=== PATIENT | female | born 1940 | race African-American/Black ===

== ENCOUNTER 2020-06-21 10:27 | Emergency (ER) | payer MEDICARE, MEDICAID ==
[~2020-06-21] VITALS: Ht 157.5 cm; Wt 66.0 kg
[2020-06-21] MEDS ORDERED: HYDROCODONE/ACETAMINOPHEN 5/325MG TABLET PO NR (12:45)
[2020-06-21 13:03] VITALS: BP 158/98
== END 2020-06-21 13:05 | disposition home or self-care (01) ==
LOC: ER 10:27
DX: M25.511 Pain in right shoulder (principal); M25.512 Pain in left shoulder; W18.39XA Other fall on same level, initial encounter; Y93.89 Activity, other specified; Y92.89 Other specified places as the place of occurrence of the external cause; Y99.8 Other external cause status; E11.9 Type 2 diabetes mellitus without complications; I10 Essential (primary) hypertension
CPT/HCPCS: 71250; 73030; 93005; 99285

== ENCOUNTER 2020-12-27 19:54 | Emergency (ER) | payer MEDICARE, MEDICAID ==
[~2020-12-27] VITALS: Ht 157.5 cm; Wt 69.0 kg
[2020-12-27] MEDS ORDERED: SODIUM CHLORIDE 0.9% 1,000 ML IV ONE (23:00)
[2020-12-27] MEDS ORDERED: ENALAPRIL 2.5MG/2ML VIAL 2ML IV ONE (23:30)
[2020-12-27 23:46] LABS: HEMATOCRIT. 35.8 % (36.0-48.0); HEMOGLOBIN. 12.4 g/dL (12.0-16.0); MEAN CORPUSCULAR HEMOGLOBIN 30.6 pg (28.0-32.0); MEAN CORPUSCULAR VOLUME 88.8 fL (81.0-99.0); MEAN PLATELET VOLUME 8.2 fl (7.4-10.4); PLATELET 212 x1000/uL (130-400); RED BLOOD CELL COUNT 4.04 mill/uL (4.2-5.4); RED CELL DISTRIBUTION WIDTH 15.4 % (11.6-14.6)
[2020-12-28 00:14] LABS: CHLORIDE 103 mEq/L (98-107)
[2020-12-28 02:01] VITALS: BP 144/89
[2020-12-28 09:10] LABS: PLATELET ESTIMATE NORMAL
[2021-01-06] MEDS ORDERED: TC1C15 TP (23:15)
[2021-01-06] MEDS ORDERED: BENA20TA10 PO (23:15)
[2021-01-06] MEDS ORDERED: GLIP10TA10 PO (23:15)
[2021-01-06] MEDS ORDERED: ATOR-2 PO (23:15)
[2021-01-06] MEDS ORDERED: BRIM10DR2 RIGHTEYE (23:15)
[2021-01-06] MEDS ORDERED: LOSA100T32 PO (23:15)
[2021-01-06] MEDS ORDERED: GABA-529 PO (23:15)
[2021-01-06] MEDS ORDERED: ATEN100T PO (23:15)
[2021-01-06] MEDS ORDERED: BROM3DRO EACHEYE (23:15)
[2021-01-06] MEDS ORDERED: ACET325T52 PO (23:15)
[2021-01-06] MEDS ORDERED: BESI5DRO EACHEYE (23:15)
[2021-01-06] MEDS ORDERED: AMLO10TA80 PO (23:15)
[2021-01-07] MEDS ORDERED: NETA2.5D3 OP (21:55)
== END 2020-12-28 02:14 | disposition home or self-care (01) ==
LOC: ER 19:54
DX: T88.1XXA Other complications following immunization, not elsewhere classified, initial encounter (principal); I10 Essential (primary) hypertension; J45.909 Unspecified asthma, uncomplicated; E11.9 Type 2 diabetes mellitus without complications; T50.B95A Adverse effect of other viral vaccines, initial encounter; Y84.8 Other medical procedures as the cause of abnormal reaction of the patient, or of later complication, without mention of misadventure at the time of the procedure; Y92.018 Other place in single-family (private) house as the place of occurrence of the external cause
CPT/HCPCS: 36415; 71045; 80053; 85025; 96361; 96374; 99284; J3490; J7030

== ENCOUNTER 2021-01-09 14:50 | Inpatient (IN) | payer MEDICARE, MEDICAID ==
[~2021-01-09] VITALS: Ht 154.9 cm; Wt 59.9 kg
[~2021-01-09 14:50] MED LIST: ACET325T52 PO; AMLO10TA80 PO; ATEN100T PO; ATOR-2 PO; BENA20TA10 PO; BESI5DRO EACHEYE; BRIM10DR2 RIGHTEYE; BROM3DRO EACHEYE; GABA-529 PO; GLIP10TA10 PO; LOSA100T32 PO; NETA2.5D3 OP; TC1C15 TP
[2021-01-09 15:00] VITALS: BP 143/75
[2021-01-09] MEDS: BLOOD SUGAR DIAGNOSTIC STRIP TEST SCH ×2 (17:00→21:14)
[2021-01-09] MEDS ORDERED: DIPHENHYDRAMINE 25MG CAPSULE PO PRN (17:15)
[2021-01-09] MEDS ORDERED: IPRATROPIUM/ALBUTEROL 0.5-3(2.5)MG/3ML NEB HHN PRN (17:15)
[2021-01-09] MEDS ORDERED: DEXTROSE 50% WATER 50ML SYRINGE IV PRN (17:15)
[2021-01-09] MEDS ORDERED: NALOXONE HCL 0.4MG/ML VIAL IV PRN (17:15)
[2021-01-09] MEDS ORDERED: GUAIFENESIN 200MG/10ML SUGAR FREE UDC PO PRN (17:45)
[2021-01-09] MEDS ORDERED: ONDANSETRON HCL 4MG/2ML INJ IV PRN (17:45)
[2021-01-09] MEDS ORDERED: MAGNESIUM/ALUMINUM HYDROXIDE/SIMETHICONE 30ML UDC PO PRN (17:45)
[2021-01-09] MEDS ORDERED: CLONIDINE 0.1MG TABLET PO PRN (17:45)
[2021-01-09] MEDS: INSULIN LISPRO 100 UNITS/ML SUBCUT SCH ×2 (18:21→21:29)
[2021-01-09] MEDS ORDERED: NETA2.5D3 EACHEYE (18:34)
[2021-01-09 20:00] VITALS: BP 157/90
[2021-01-09] MEDS: TIMOLOL MALEATE 0.5% OPHTH DROPS 5ML EACHEYE SCH (20:27)
[2021-01-09] MEDS: ATORVASTATIN CALCIUM 40MG TABLET PO SCH (20:28)
[2021-01-09] MEDS: OPTH OP SCH (20:28)
[2021-01-09] MEDS: BESIFLOXACIN OP SCH (20:28)
[2021-01-09] MEDS: METOPROLOL TARTRATE 25MG TABLET PO SCH (20:28)
[2021-01-09] MEDS: ROCKLATAN OP SCH (20:28)
[2021-01-09] MEDS ORDERED: LATANOPROST 0.005% OPHTH DROPS 2.5ML BOTHEYE SCH (21:00)
[2021-01-09] MEDS ORDERED: BLOOD SUGAR DIAGNOSTIC STRIP TEST SCH (21:00)
[2021-01-09] MEDS: GABAPENTIN 100MG CAPSULE PO SCH (21:11)
[2021-01-10] MEDS: GABAPENTIN 100MG CAPSULE PO SCH ×3 (05:53→22:34)
[2021-01-10] MEDS: BLOOD SUGAR DIAGNOSTIC STRIP TEST SCH ×4 (06:00→22:10)
[2021-01-10 08:00] VITALS: BP 144/75
[2021-01-10] MEDS: METOPROLOL TARTRATE 25MG TABLET PO SCH ×2 (08:33→21:36)
[2021-01-10] MEDS: ASPIRIN 81MG TABLET PO SCH (08:33)
[2021-01-10] MEDS: POLYETHYLENE GLYCOL 3350 (17GM) 1 DOSE PACK PO SCH (08:33)
[2021-01-10] MEDS: AMLODIPINE 10MG TABLET PO SCH (08:34)
[2021-01-10] MEDS: BESIFLOXACIN OP SCH ×4 (08:35→21:35)
[2021-01-10] MEDS: TIMOLOL MALEATE 0.5% OPHTH DROPS 5ML EACHEYE SCH ×2 (08:35→21:34)
[2021-01-10] MEDS: PROLENSA 0.07% OP SCH (08:35)
[2021-01-10] MEDS: BRIMONIDINE 0.2% OPHTH DROPS 5ML BOTHEYE SCH ×2 (08:36→18:00)
[2021-01-10] MEDS: DOCUSATE SODIUM 100MG CAPSULE PO SCH (08:41)
[2021-01-10] MEDS: ENOXAPARIN 30MG/0.3ML SYR SUBCUT SCH (08:58)
[2021-01-10] MEDS: INSULIN LISPRO 100 UNITS/ML SUBCUT SCH ×4 (08:58→22:10)
[2021-01-10] MEDS ORDERED: NA PHOS,M-B/NA PHOS,DI-BA ENEMA 118ML PR PRN (11:15)
[2021-01-10] MEDS ORDERED: SENNOSIDES/DOCUSATE SOD 8.6/50MG TABLET PO PRN (11:15)
[2021-01-10] MEDS ORDERED: LACTULOSE 20G/30ML UDC PO PRN (11:15)
[2021-01-10] MEDS ORDERED: BISACODYL 10MG SUPP PR PRN (11:15)
[2021-01-10] MEDS: ACETAMINOPHEN 325MG TABLET PO PRN ×2 (13:43→22:34)
[2021-01-10 20:00] VITALS: BP 141/69
[2021-01-10] MEDS: ROCKLATAN OP SCH (21:00)
[2021-01-10] MEDS: OPTH OP SCH (21:00)
[2021-01-10] MEDS: ATORVASTATIN CALCIUM 40MG TABLET PO SCH (21:37)
[2021-01-11] MEDS: GABAPENTIN 100MG CAPSULE PO SCH ×3 (05:59→21:52)
[2021-01-11] MEDS: BLOOD SUGAR DIAGNOSTIC STRIP TEST SCH ×4 (06:00→21:14)
[2021-01-11 07:47] VITALS: BP 122/82
[2021-01-11] MEDS: POLYETHYLENE GLYCOL 3350 (17GM) 1 DOSE PACK PO SCH (08:23)
[2021-01-11] MEDS: ASPIRIN 81MG TABLET PO SCH (08:24)
[2021-01-11] MEDS: AMLODIPINE 10MG TABLET PO SCH (08:24)
[2021-01-11] MEDS: METOPROLOL TARTRATE 25MG TABLET PO SCH ×2 (08:24→20:58)
[2021-01-11] MEDS: ENOXAPARIN 30MG/0.3ML SYR SUBCUT SCH (08:24)
[2021-01-11] MEDS: BISACODYL 5MG TABLET PO PRN (08:24)
[2021-01-11] MEDS: DOCUSATE SODIUM 100MG CAPSULE PO SCH (08:24)
[2021-01-11] MEDS: PROLENSA 0.07% OP SCH (08:25)
[2021-01-11] MEDS: TIMOLOL MALEATE 0.5% OPHTH DROPS 5ML EACHEYE SCH ×2 (08:25→20:58)
[2021-01-11] MEDS: BESIFLOXACIN OP SCH ×4 (08:25→20:58)
[2021-01-11] MEDS: BRIMONIDINE 0.2% OPHTH DROPS 5ML BOTHEYE SCH ×2 (08:25→17:13)
[2021-01-11] MEDS: HYDROCODONE/ACETAMINOPHEN 5/325MG TABLET PO PRN (08:46)
[2021-01-11] MEDS: INSULIN LISPRO 100 UNITS/ML SUBCUT SCH ×4 (08:50→21:31)
[2021-01-11 20:00] VITALS: BP 132/61
[2021-01-11] MEDS: ATORVASTATIN CALCIUM 40MG TABLET PO SCH (20:57)
[2021-01-11] MEDS: OPTH OP SCH (20:58)
[2021-01-11] MEDS: ROCKLATAN OP SCH (20:58)
[2021-01-12] MEDS: GABAPENTIN 100MG CAPSULE PO SCH ×3 (05:26→20:19)
[2021-01-12] MEDS: BLOOD SUGAR DIAGNOSTIC STRIP TEST SCH ×4 (06:09→21:33)
[2021-01-12] MEDS: INSULIN LISPRO 100 UNITS/ML SUBCUT SCH ×4 (06:43→20:47)
[2021-01-12 08:10] VITALS: BP 108/65
[2021-01-12] MEDS: ASPIRIN 81MG TABLET PO SCH (08:18)
[2021-01-12] MEDS: METFORMIN HCL 500MG TABLET PO SCH (08:18)
[2021-01-12] MEDS: DOCUSATE SODIUM 100MG CAPSULE PO SCH (08:18)
[2021-01-12] MEDS: PROLENSA 0.07% OP SCH (08:19)
[2021-01-12] MEDS: ENOXAPARIN 30MG/0.3ML SYR SUBCUT SCH (08:19)
[2021-01-12] MEDS: POLYETHYLENE GLYCOL 3350 (17GM) 1 DOSE PACK PO SCH (08:19)
[2021-01-12] MEDS: TIMOLOL MALEATE 0.5% OPHTH DROPS 5ML EACHEYE SCH ×2 (08:20→20:18)
[2021-01-12] MEDS: BRIMONIDINE 0.2% OPHTH DROPS 5ML BOTHEYE SCH ×2 (08:20→17:14)
[2021-01-12] MEDS: METOPROLOL TARTRATE 25MG TABLET PO SCH ×2 (08:21→20:20)
[2021-01-12] MEDS: AMLODIPINE 10MG TABLET PO SCH (08:21)
[2021-01-12] MEDS: BESIFLOXACIN OP SCH ×4 (08:21→20:18)
[2021-01-12] MEDS: HYDROCODONE/ACETAMINOPHEN 5/325MG TABLET PO PRN (10:05)
[2021-01-12 10:10] VITALS: BP 127/76
[2021-01-12] MEDS: OPTH OP SCH (20:17)
[2021-01-12] MEDS: ROCKLATAN OP SCH (20:17)
[2021-01-12] MEDS: ATORVASTATIN CALCIUM 40MG TABLET PO SCH (20:18)
[2021-01-12 21:39] VITALS: BP 125/78
[2021-01-13] MEDS: BLOOD SUGAR DIAGNOSTIC STRIP TEST SCH ×4 (05:51→20:44)
[2021-01-13] MEDS: GABAPENTIN 100MG CAPSULE PO SCH ×3 (05:51→21:50)
[2021-01-13] MEDS: INSULIN LISPRO 100 UNITS/ML SUBCUT SCH ×4 (07:35→22:11)
[2021-01-13 07:52] VITALS: BP 124/79
[2021-01-13] MEDS: ASPIRIN 81MG TABLET PO SCH (08:25)
[2021-01-13] MEDS: METFORMIN HCL 500MG TABLET PO SCH (08:25)
[2021-01-13] MEDS: HYDROCODONE/ACETAMINOPHEN 5/325MG TABLET PO PRN (08:26)
[2021-01-13] MEDS: METOPROLOL TARTRATE 25MG TABLET PO SCH ×2 (08:26→21:53)
[2021-01-13] MEDS: AMLODIPINE 10MG TABLET PO SCH (08:26)
[2021-01-13] MEDS: DOCUSATE SODIUM 100MG CAPSULE PO SCH (08:26)
[2021-01-13] MEDS: BESIFLOXACIN OP SCH ×4 (08:27→21:49)
[2021-01-13] MEDS: POLYETHYLENE GLYCOL 3350 (17GM) 1 DOSE PACK PO SCH (08:27)
[2021-01-13] MEDS: TIMOLOL MALEATE 0.5% OPHTH DROPS 5ML EACHEYE SCH ×2 (08:27→21:49)
[2021-01-13] MEDS: ENOXAPARIN 30MG/0.3ML SYR SUBCUT SCH (08:27)
[2021-01-13] MEDS: BRIMONIDINE 0.2% OPHTH DROPS 5ML BOTHEYE SCH ×2 (08:28→17:21)
[2021-01-13] MEDS: PROLENSA 0.07% OP SCH (08:28)
[2021-01-13 20:00] VITALS: BP 123/88
[2021-01-13] MEDS: ROCKLATAN OP SCH (21:49)
[2021-01-13] MEDS: OPTH OP SCH (21:49)
[2021-01-13] MEDS: ATORVASTATIN CALCIUM 40MG TABLET PO SCH (21:50)
[2021-01-13] MEDS: MEMANTINE HCL 5MG TABLET PO SCH (21:50)
[2021-01-14] MEDS: ACETAMINOPHEN 325MG TABLET PO PRN (05:35)
[2021-01-14] MEDS: GABAPENTIN 100MG CAPSULE PO SCH ×3 (05:35→20:06)
[2021-01-14] MEDS: BLOOD SUGAR DIAGNOSTIC STRIP TEST SCH ×4 (05:35→20:21)
[2021-01-14] MEDS: INSULIN LISPRO 100 UNITS/ML SUBCUT SCH ×4 (06:02→20:18)
[2021-01-14 07:43] VITALS: BP 129/65
[2021-01-14 07:57] LABS: BASOPHILS % 0.7 % (0.0-2.0); EOSINOPHILS % 1.8 % (0.0-5.0); HEMATOCRIT. 33.2 % (36.0-48.0); HEMOGLOBIN. 11.2 g/dL (12.0-16.0); LYMPHOCYTES % 26.7 % (20.0-50.0); MEAN CORPUSCULAR HEMOGLOBIN 29.9 pg (28.0-32.0); MEAN CORPUSCULAR VOLUME 88.2 fL (81.0-99.0); MONOCYTES % 11.2 % (2.0-8.0); NEUTROPHILS % 59.6 % (40.0-76.0); PLATELET 224 x1000/uL (130-400); RED BLOOD CELL COUNT 3.76 mill/uL (4.2-5.4)
[2021-01-14 08:03] LABS: CHLORIDE 98 mEq/L (98-107)
[2021-01-14] MEDS: METFORMIN HCL 500MG TABLET PO SCH (09:16)
[2021-01-14] MEDS: MEMANTINE HCL 5MG TABLET PO SCH ×2 (09:16→20:06)
[2021-01-14] MEDS: AMLODIPINE 10MG TABLET PO SCH (09:16)
[2021-01-14] MEDS: METOPROLOL TARTRATE 25MG TABLET PO SCH ×2 (09:16→20:07)
[2021-01-14] MEDS: ASPIRIN 81MG TABLET PO SCH (09:16)
[2021-01-14] MEDS: DOCUSATE SODIUM 100MG CAPSULE PO SCH (09:16)
[2021-01-14] MEDS: ENOXAPARIN 30MG/0.3ML SYR SUBCUT SCH (09:16)
[2021-01-14] MEDS: BRIMONIDINE 0.2% OPHTH DROPS 5ML BOTHEYE SCH ×2 (09:17→17:00)
[2021-01-14] MEDS: PROLENSA 0.07% OP SCH (09:18)
[2021-01-14] MEDS: TIMOLOL MALEATE 0.5% OPHTH DROPS 5ML EACHEYE SCH ×2 (09:18→20:06)
[2021-01-14] MEDS: BESIFLOXACIN OP SCH ×4 (09:19→20:06)
[2021-01-14] MEDS: POLYETHYLENE GLYCOL 3350 (17GM) 1 DOSE PACK PO SCH (09:20)
[2021-01-14] MEDS ORDERED: INSULIN GLARGINE UD 100 UNITS/ML SYR SUBCUT SCH (11:00)
[2021-01-14] MEDS: LINAGLIPTIN 5MG TABLET PO SCH (11:35)
[2021-01-14 20:00] VITALS: BP 165/78
[2021-01-14] MEDS: ATORVASTATIN CALCIUM 40MG TABLET PO SCH (20:06)
[2021-01-14] MEDS: ROCKLATAN OP SCH (20:06)
[2021-01-14] MEDS: OPTH OP SCH (20:06)
[2021-01-14 22:00] VITALS: BP 156/61
[2021-01-15] MEDS: GABAPENTIN 100MG CAPSULE PO SCH ×3 (05:29→21:20)
[2021-01-15] MEDS: BLOOD SUGAR DIAGNOSTIC STRIP TEST SCH ×4 (05:43→21:08)
[2021-01-15] MEDS: INSULIN LISPRO 100 UNITS/ML SUBCUT SCH ×7 (06:41→21:22)
[2021-01-15 07:48] VITALS: BP 132/75
[2021-01-15] MEDS: PROLENSA 0.07% OP SCH (09:53)
[2021-01-15] MEDS: BRIMONIDINE 0.2% OPHTH DROPS 5ML BOTHEYE SCH ×2 (09:53→18:06)
[2021-01-15] MEDS: BESIFLOXACIN OP SCH ×4 (09:53→20:50)
[2021-01-15] MEDS: TIMOLOL MALEATE 0.5% OPHTH DROPS 5ML EACHEYE SCH ×2 (09:53→20:51)
[2021-01-15] MEDS: MEMANTINE HCL 5MG TABLET PO SCH ×2 (09:54→20:51)
[2021-01-15] MEDS: DOCUSATE SODIUM 100MG CAPSULE PO SCH (09:54)
[2021-01-15] MEDS: METOPROLOL TARTRATE 25MG TABLET PO SCH ×3 (09:54→18:06)
[2021-01-15] MEDS: METFORMIN HCL 500MG TABLET PO SCH (09:54)
[2021-01-15] MEDS: AMLODIPINE 10MG TABLET PO SCH (09:54)
[2021-01-15] MEDS: POLYETHYLENE GLYCOL 3350 (17GM) 1 DOSE PACK PO SCH (09:55)
[2021-01-15] MEDS: ASPIRIN 81MG TABLET PO SCH (09:55)
[2021-01-15] MEDS: LINAGLIPTIN 5MG TABLET PO SCH (09:55)
[2021-01-15] MEDS: ENOXAPARIN 40MG/0.4ML SYR SUBCUT SCH (09:55)
[2021-01-15] MEDS: INSULIN GLARGINE UD 100 UNITS/ML SYR SUBCUT SCH (10:01)
[2021-01-15 17:30] VITALS: BP 136/72
[2021-01-15 20:00] VITALS: BP 133/93
[2021-01-15] MEDS: ROCKLATAN OP SCH (20:50)
[2021-01-15] MEDS: OPTH OP SCH (20:50)
[2021-01-15] MEDS: ATORVASTATIN CALCIUM 40MG TABLET PO SCH (20:51)
[2021-01-16] MEDS: GABAPENTIN 100MG CAPSULE PO SCH ×3 (05:28→21:16)
[2021-01-16] MEDS: BLOOD SUGAR DIAGNOSTIC STRIP TEST SCH ×4 (06:11→21:16)
[2021-01-16] MEDS: INSULIN LISPRO 100 UNITS/ML SUBCUT SCH ×7 (06:11→21:00)
[2021-01-16 08:00] VITALS: BP 137/53
[2021-01-16 08:33] LABS: CHLORIDE 102 mEq/L (98-107)
[2021-01-16 08:48] LABS: BASOPHILS % 0.5 % (0.0-2.0); EOSINOPHILS % 2.1 % (0.0-5.0); HEMATOCRIT. 44.4 % (36.0-48.0); HEMOGLOBIN. 14.4 g/dL (12.0-16.0); LYMPHOCYTES % 35.1 % (20.0-50.0); MEAN CORPUSCULAR HEMOGLOBIN 29.5 pg (28.0-32.0); MEAN PLATELET VOLUME 8.2 fl (7.4-10.4); MONOCYTES % 13.1 % (2.0-8.0); NEUTROPHILS % 49.2 % (40.0-76.0); PLATELET 203 x1000/uL (130-400); RED BLOOD CELL COUNT 4.89 mill/uL (4.2-5.4); RED CELL DISTRIBUTION WIDTH 15.2 % (11.6-14.6)
[2021-01-16] MEDS: ENOXAPARIN 40MG/0.4ML SYR SUBCUT SCH (09:24)
[2021-01-16] MEDS: PROLENSA 0.07% OP SCH (09:24)
[2021-01-16] MEDS: LINAGLIPTIN 5MG TABLET PO SCH (09:24)
[2021-01-16] MEDS: DOCUSATE SODIUM 100MG CAPSULE PO SCH (09:24)
[2021-01-16] MEDS: METFORMIN HCL 500MG TABLET PO SCH (09:24)
[2021-01-16] MEDS: POLYETHYLENE GLYCOL 3350 (17GM) 1 DOSE PACK PO SCH (09:24)
[2021-01-16] MEDS: ASPIRIN 81MG TABLET PO SCH (09:24)
[2021-01-16] MEDS: BESIFLOXACIN OP SCH ×4 (09:24→21:15)
[2021-01-16] MEDS: TIMOLOL MALEATE 0.5% OPHTH DROPS 5ML EACHEYE SCH ×2 (09:24→21:15)
[2021-01-16] MEDS: MEMANTINE HCL 5MG TABLET PO SCH ×2 (09:24→21:16)
[2021-01-16] MEDS: METOPROLOL TARTRATE 25MG TABLET PO SCH ×3 (09:25→18:04)
[2021-01-16] MEDS: BRIMONIDINE 0.2% OPHTH DROPS 5ML BOTHEYE SCH ×2 (09:26→17:00)
[2021-01-16] MEDS: AMLODIPINE 10MG TABLET PO SCH (11:04)
[2021-01-16] MEDS: INSULIN GLARGINE UD 100 UNITS/ML SYR SUBCUT SCH (11:07)
[2021-01-16 20:00] VITALS: BP 145/70
[2021-01-16] MEDS: ROCKLATAN OP SCH (21:15)
[2021-01-16] MEDS: OPTH OP SCH (21:15)
[2021-01-16] MEDS: ATORVASTATIN CALCIUM 40MG TABLET PO SCH (21:16)
[2021-01-17] MEDS: GABAPENTIN 100MG CAPSULE PO SCH ×3 (05:56→21:41)
[2021-01-17] MEDS: BLOOD SUGAR DIAGNOSTIC STRIP TEST SCH ×4 (05:59→21:42)
[2021-01-17] MEDS: INSULIN LISPRO 100 UNITS/ML SUBCUT SCH ×7 (06:01→21:00)
[2021-01-17 08:18] VITALS: BP 135/76
[2021-01-17] MEDS: LINAGLIPTIN 5MG TABLET PO SCH (08:45)
[2021-01-17] MEDS: BISACODYL 5MG TABLET PO PRN (08:45)
[2021-01-17] MEDS: DOCUSATE SODIUM 100MG CAPSULE PO SCH (08:45)
[2021-01-17] MEDS: METOPROLOL TARTRATE 25MG TABLET PO SCH ×3 (08:45→16:26)
[2021-01-17] MEDS: MEMANTINE HCL 5MG TABLET PO SCH ×2 (08:45→21:41)
[2021-01-17] MEDS: METFORMIN HCL 500MG TABLET PO SCH (08:45)
[2021-01-17] MEDS: ASPIRIN 81MG TABLET PO SCH (08:45)
[2021-01-17] MEDS: ENOXAPARIN 40MG/0.4ML SYR SUBCUT SCH (08:46)
[2021-01-17] MEDS: AMLODIPINE 10MG TABLET PO SCH (08:46)
[2021-01-17] MEDS: POLYETHYLENE GLYCOL 3350 (17GM) 1 DOSE PACK PO SCH (08:46)
[2021-01-17] MEDS: BRIMONIDINE 0.2% OPHTH DROPS 5ML BOTHEYE SCH ×2 (08:46→16:27)
[2021-01-17] MEDS: TIMOLOL MALEATE 0.5% OPHTH DROPS 5ML EACHEYE SCH ×2 (08:47→21:41)
[2021-01-17] MEDS: BESIFLOXACIN OP SCH ×4 (08:47→21:41)
[2021-01-17] MEDS: PROLENSA 0.07% OP SCH (08:48)
[2021-01-17] MEDS: INSULIN GLARGINE UD 100 UNITS/ML SYR SUBCUT SCH (09:52)
[2021-01-17 12:37] VITALS: BP 122/76
[2021-01-17 16:20] VITALS: BP 125/74
[2021-01-17 20:00] VITALS: BP 100/50
[2021-01-17] MEDS: ATORVASTATIN CALCIUM 40MG TABLET PO SCH (21:41)
[2021-01-17] MEDS: OPTH OP SCH (21:41)
[2021-01-17] MEDS: ROCKLATAN OP SCH (21:41)
[2021-01-18] MEDS: GABAPENTIN 100MG CAPSULE PO SCH ×3 (05:15→21:15)
[2021-01-18] MEDS: BLOOD SUGAR DIAGNOSTIC STRIP TEST SCH ×4 (06:43→21:18)
[2021-01-18] MEDS: INSULIN LISPRO 100 UNITS/ML SUBCUT SCH ×7 (06:44→21:23)
[2021-01-18 07:46] VITALS: BP 155/82
[2021-01-18] MEDS: METOPROLOL TARTRATE 25MG TABLET PO SCH ×3 (08:09→17:09)
[2021-01-18] MEDS: TIMOLOL MALEATE 0.5% OPHTH DROPS 5ML EACHEYE SCH ×2 (08:09→21:14)
[2021-01-18] MEDS: BRIMONIDINE 0.2% OPHTH DROPS 5ML BOTHEYE SCH ×2 (08:09→17:09)
[2021-01-18] MEDS: PROLENSA 0.07% OP SCH (08:09)
[2021-01-18] MEDS: BESIFLOXACIN OP SCH ×4 (08:09→21:14)
[2021-01-18] MEDS: POLYETHYLENE GLYCOL 3350 (17GM) 1 DOSE PACK PO SCH (08:09)
[2021-01-18] MEDS: METFORMIN HCL 500MG TABLET PO SCH (08:09)
[2021-01-18] MEDS: AMLODIPINE 10MG TABLET PO SCH (08:10)
[2021-01-18] MEDS: ENOXAPARIN 40MG/0.4ML SYR SUBCUT SCH (08:10)
[2021-01-18] MEDS: DOCUSATE SODIUM 100MG CAPSULE PO SCH (08:10)
[2021-01-18] MEDS: MEMANTINE HCL 5MG TABLET PO SCH ×2 (08:10→21:14)
[2021-01-18] MEDS: LINAGLIPTIN 5MG TABLET PO SCH (08:10)
[2021-01-18] MEDS: ASPIRIN 81MG TABLET PO SCH (08:10)
[2021-01-18] MEDS: INSULIN GLARGINE UD 100 UNITS/ML SYR SUBCUT SCH (10:27)
[2021-01-18 20:00] VITALS: BP 119/50
[2021-01-18] MEDS: ROCKLATAN OP SCH (21:14)
[2021-01-18] MEDS: OPTH OP SCH (21:14)
[2021-01-18] MEDS: ATORVASTATIN CALCIUM 40MG TABLET PO SCH (21:15)
[2021-01-19] MEDS: GABAPENTIN 100MG CAPSULE PO SCH ×3 (06:42→21:20)
[2021-01-19] MEDS: BLOOD SUGAR DIAGNOSTIC STRIP TEST SCH ×4 (06:43→21:21)
[2021-01-19] MEDS: INSULIN LISPRO 100 UNITS/ML SUBCUT SCH ×5 (06:44→21:00)
[2021-01-19 08:17] VITALS: BP 159/91
[2021-01-19] MEDS: POLYETHYLENE GLYCOL 3350 (17GM) 1 DOSE PACK PO SCH (08:26)
[2021-01-19] MEDS: ASPIRIN 81MG TABLET PO SCH (08:26)
[2021-01-19] MEDS: ENOXAPARIN 40MG/0.4ML SYR SUBCUT SCH (08:26)
[2021-01-19] MEDS: MEMANTINE HCL 5MG TABLET PO SCH ×2 (08:27→21:20)
[2021-01-19] MEDS: AMLODIPINE 10MG TABLET PO SCH (08:27)
[2021-01-19] MEDS: METFORMIN HCL 500MG TABLET PO SCH (08:27)
[2021-01-19] MEDS: LINAGLIPTIN 5MG TABLET PO SCH (08:27)
[2021-01-19] MEDS: DOCUSATE SODIUM 100MG CAPSULE PO SCH (08:27)
[2021-01-19] MEDS: METOPROLOL TARTRATE 25MG TABLET PO SCH ×3 (08:27→16:18)
[2021-01-19] MEDS: PROLENSA 0.07% OP SCH (08:28)
[2021-01-19] MEDS: BRIMONIDINE 0.2% OPHTH DROPS 5ML BOTHEYE SCH ×2 (08:28→16:18)
[2021-01-19] MEDS: TIMOLOL MALEATE 0.5% OPHTH DROPS 5ML EACHEYE SCH ×2 (08:29→21:24)
[2021-01-19] MEDS: BESIFLOXACIN OP SCH ×4 (08:29→21:25)
[2021-01-19] MEDS: INSULIN GLARGINE UD 100 UNITS/ML SYR SUBCUT SCH (09:07)
[2021-01-19 20:00] VITALS: BP 149/76
[2021-01-19] MEDS: ATORVASTATIN CALCIUM 40MG TABLET PO SCH (21:20)
[2021-01-19] MEDS: OPTH OP SCH (21:24)
[2021-01-19] MEDS: ROCKLATAN OP SCH (21:24)
[2021-01-20] MEDS: GABAPENTIN 100MG CAPSULE PO SCH ×3 (05:37→21:29)
[2021-01-20] MEDS: BLOOD SUGAR DIAGNOSTIC STRIP TEST SCH ×4 (05:37→20:51)
[2021-01-20] MEDS: INSULIN LISPRO 100 UNITS/ML SUBCUT SCH ×4 (06:20→20:51)
[2021-01-20 07:00] VITALS: BP 144/71
[2021-01-20] MEDS: ENOXAPARIN 40MG/0.4ML SYR SUBCUT SCH (09:19)
[2021-01-20] MEDS: METOPROLOL TARTRATE 25MG TABLET PO SCH ×3 (09:20→16:13)
[2021-01-20] MEDS: MEMANTINE HCL 5MG TABLET PO SCH ×2 (09:20→20:47)
[2021-01-20] MEDS: METFORMIN HCL 500MG TABLET PO SCH ×2 (09:20→16:13)
[2021-01-20] MEDS: AMLODIPINE 10MG TABLET PO SCH (09:20)
[2021-01-20] MEDS: DOCUSATE SODIUM 100MG CAPSULE PO SCH (09:20)
[2021-01-20] MEDS: ASPIRIN 81MG TABLET PO SCH (09:20)
[2021-01-20] MEDS: LINAGLIPTIN 5MG TABLET PO SCH (09:20)
[2021-01-20] MEDS: PROLENSA 0.07% OP SCH (09:22)
[2021-01-20] MEDS: BESIFLOXACIN OP SCH ×4 (09:23→20:47)
[2021-01-20] MEDS: TIMOLOL MALEATE 0.5% OPHTH DROPS 5ML EACHEYE SCH ×2 (09:23→20:47)
[2021-01-20] MEDS: BRIMONIDINE 0.2% OPHTH DROPS 5ML BOTHEYE SCH ×2 (09:23→16:13)
[2021-01-20] MEDS: POLYETHYLENE GLYCOL 3350 (17GM) 1 DOSE PACK PO SCH (09:26)
[2021-01-20] MEDS: INSULIN GLARGINE UD 100 UNITS/ML SYR SUBCUT SCH (10:28)
[2021-01-20 12:00] VITALS: BP 128/62
[2021-01-20] MEDS: ACETAMINOPHEN 325MG TABLET PO PRN (13:11)
[2021-01-20 20:00] VITALS: BP 107/66
[2021-01-20] MEDS: OPTH OP SCH (20:47)
[2021-01-20] MEDS: ATORVASTATIN CALCIUM 40MG TABLET PO SCH (20:47)
[2021-01-20] MEDS: ROCKLATAN OP SCH (20:47)
[2021-01-21] MEDS: GABAPENTIN 100MG CAPSULE PO SCH ×3 (05:27→21:04)
[2021-01-21] MEDS: BLOOD SUGAR DIAGNOSTIC STRIP TEST SCH ×4 (06:10→20:30)
[2021-01-21] MEDS: INSULIN LISPRO 100 UNITS/ML SUBCUT SCH ×4 (06:20→20:30)
[2021-01-21 07:24] LABS: BASOPHILS % 0.7 % (0.0-2.0); EOSINOPHILS % 2.9 % (0.0-5.0); HEMATOCRIT. 32.5 % (36.0-48.0); HEMOGLOBIN. 10.8 g/dL (12.0-16.0); LYMPHOCYTES % 41.2 % (20.0-50.0); MEAN CORPUSCULAR HEMOGLOBIN 29.5 pg (28.0-32.0); MEAN CORPUSCULAR VOLUME 88.8 fL (81.0-99.0); MEAN PLATELET VOLUME 7.9 fl (7.4-10.4); MONOCYTES % 10.1 % (2.0-8.0); NEUTROPHILS % 45.1 % (40.0-76.0); PLATELET 338 x1000/uL (130-400); RED BLOOD CELL COUNT 3.67 mill/uL (4.2-5.4); RED CELL DISTRIBUTION WIDTH 14.7 % (11.6-14.6)
[2021-01-21 07:29] LABS: CHLORIDE 104 mEq/L (98-107)
[2021-01-21 08:14] VITALS: BP 138/66
[2021-01-21] MEDS: POLYETHYLENE GLYCOL 3350 (17GM) 1 DOSE PACK PO SCH (09:52)
[2021-01-21] MEDS: MEMANTINE HCL 5MG TABLET PO SCH ×2 (09:53→20:24)
[2021-01-21] MEDS: METOPROLOL TARTRATE 25MG TABLET PO SCH ×3 (09:53→17:12)
[2021-01-21] MEDS: DOCUSATE SODIUM 100MG CAPSULE PO SCH (09:53)
[2021-01-21] MEDS: METFORMIN HCL 500MG TABLET PO SCH ×2 (09:53→17:11)
[2021-01-21] MEDS: ENOXAPARIN 40MG/0.4ML SYR SUBCUT SCH (09:53)
[2021-01-21] MEDS: LINAGLIPTIN 5MG TABLET PO SCH (09:53)
[2021-01-21] MEDS: ASPIRIN 81MG TABLET PO SCH (09:54)
[2021-01-21] MEDS: AMLODIPINE 10MG TABLET PO SCH (09:54)
[2021-01-21] MEDS: PROLENSA 0.07% OP SCH (09:54)
[2021-01-21] MEDS: BRIMONIDINE 0.2% OPHTH DROPS 5ML BOTHEYE SCH ×2 (09:54→17:12)
[2021-01-21] MEDS: TIMOLOL MALEATE 0.5% OPHTH DROPS 5ML EACHEYE SCH ×2 (09:55→20:25)
[2021-01-21] MEDS: BESIFLOXACIN OP SCH ×4 (09:55→20:25)
[2021-01-21] MEDS: INSULIN GLARGINE UD 100 UNITS/ML SYR SUBCUT SCH (10:05)
[2021-01-21 20:00] VITALS: BP 126/64
[2021-01-21] MEDS: ATORVASTATIN CALCIUM 40MG TABLET PO SCH (20:24)
[2021-01-21] MEDS: ROCKLATAN OP SCH (20:27)
[2021-01-21] MEDS: OPTH OP SCH (20:27)
[2021-01-22] MEDS: GABAPENTIN 100MG CAPSULE PO SCH ×3 (05:27→21:53)
[2021-01-22] MEDS: BLOOD SUGAR DIAGNOSTIC STRIP TEST SCH ×4 (06:10→21:55)
[2021-01-22] MEDS: INSULIN LISPRO 100 UNITS/ML SUBCUT SCH ×4 (06:10→21:00)
[2021-01-22 07:49] VITALS: BP 131/70
[2021-01-22] MEDS: PROLENSA 0.07% OP SCH (09:48)
[2021-01-22] MEDS: METFORMIN HCL 500MG TABLET PO SCH ×2 (09:49→17:49)
[2021-01-22] MEDS: BRIMONIDINE 0.2% OPHTH DROPS 5ML BOTHEYE SCH ×2 (09:49→17:50)
[2021-01-22] MEDS: ASPIRIN 81MG TABLET PO SCH (09:49)
[2021-01-22] MEDS: MEMANTINE HCL 5MG TABLET PO SCH ×2 (09:49→21:53)
[2021-01-22] MEDS: METOPROLOL TARTRATE 25MG TABLET PO SCH ×3 (09:49→17:49)
[2021-01-22] MEDS: POLYETHYLENE GLYCOL 3350 (17GM) 1 DOSE PACK PO SCH (09:50)
[2021-01-22] MEDS: LINAGLIPTIN 5MG TABLET PO SCH (09:50)
[2021-01-22] MEDS: ENOXAPARIN 40MG/0.4ML SYR SUBCUT SCH (09:50)
[2021-01-22] MEDS: AMLODIPINE 10MG TABLET PO SCH (09:50)
[2021-01-22] MEDS: DOCUSATE SODIUM 100MG CAPSULE PO SCH (09:50)
[2021-01-22] MEDS: BESIFLOXACIN OP SCH ×4 (09:59→21:54)
[2021-01-22] MEDS: TIMOLOL MALEATE 0.5% OPHTH DROPS 5ML EACHEYE SCH ×2 (09:59→21:55)
[2021-01-22] MEDS: INSULIN GLARGINE UD 100 UNITS/ML SYR SUBCUT SCH (10:57)
[2021-01-22 20:00] VITALS: BP 132/68
[2021-01-22] MEDS: ATORVASTATIN CALCIUM 40MG TABLET PO SCH (21:53)
[2021-01-22] MEDS: OPTH OP SCH (21:54)
[2021-01-22] MEDS: ROCKLATAN OP SCH (21:54)
[2021-01-23] MEDS: GABAPENTIN 100MG CAPSULE PO SCH ×2 (06:11→13:34)
[2021-01-23] MEDS: BLOOD SUGAR DIAGNOSTIC STRIP TEST SCH ×2 (06:30→11:15)
[2021-01-23 08:02] VITALS: BP 114/62
[2021-01-23 08:16] LABS: FOLIC ACID (FOLATE) SERUM 16.4 ng/mL (>5.38)
[2021-01-23] MEDS: POLYETHYLENE GLYCOL 3350 (17GM) 1 DOSE PACK PO SCH (09:00)
[2021-01-23] MEDS: INSULIN LISPRO 100 UNITS/ML SUBCUT SCH ×2 (09:00→13:00)
[2021-01-23] MEDS: PROLENSA 0.07% OP SCH (10:30)
[2021-01-23] MEDS: ENOXAPARIN 40MG/0.4ML SYR SUBCUT SCH (10:30)
[2021-01-23] MEDS: BESIFLOXACIN OP SCH ×2 (10:31→13:35)
[2021-01-23] MEDS: TIMOLOL MALEATE 0.5% OPHTH DROPS 5ML EACHEYE SCH (10:31)
[2021-01-23] MEDS: BRIMONIDINE 0.2% OPHTH DROPS 5ML BOTHEYE SCH (10:31)
[2021-01-23] MEDS: DOCUSATE SODIUM 100MG CAPSULE PO SCH (10:32)
[2021-01-23] MEDS: MEMANTINE HCL 5MG TABLET PO SCH (10:32)
[2021-01-23] MEDS: METOPROLOL TARTRATE 25MG TABLET PO SCH ×2 (10:32→13:35)
[2021-01-23] MEDS: ASPIRIN 81MG TABLET PO SCH (10:32)
[2021-01-23] MEDS: METFORMIN HCL 500MG TABLET PO SCH (10:32)
[2021-01-23] MEDS: LINAGLIPTIN 5MG TABLET PO SCH (10:33)
[2021-01-23] MEDS: AMLODIPINE 10MG TABLET PO SCH (10:45)
[2021-01-23] MEDS: INSULIN GLARGINE UD 100 UNITS/ML SYR SUBCUT SCH (10:48)
[2021-01-23 14:33] VITALS: BP 114/62
[2021-01-29 15:09] LABS: 25-HYDROXY VITAMIN D3 36 ng/mL (.)
== END 2021-01-23 17:05 | disposition home health service (06) | DRG 98 ==
LOC: 4WST 14:50 → UNDOADMIN 14:50
PROVIDERS: ADMIT Psychiatry & Neurology Neurology; ATTEND Internal Medicine
PROC: 4A10X4Z Monitoring of Central Nervous Electrical Activity, External Approach (ICD-10-PCS; principal; 2021-01-08)
DX: G04.81 Other encephalitis and encephalomyelitis (principal); E87.1 Hypo-osmolality and hyponatremia; I67.82 Cerebral ischemia; I50.30 Unspecified diastolic (congestive) heart failure; I11.0 Hypertensive heart disease with heart failure; I25.10 Atherosclerotic heart disease of native coronary artery without angina pectoris; D64.9 Anemia, unspecified; E11.65 Type 2 diabetes mellitus with hyperglycemia; E78.00 Pure hypercholesterolemia, unspecified; F03.90 Unspecified dementia, unspecified severity, without behavioral disturbance, psychotic disturbance, mood disturbance, and anxiety; F39 Unspecified mood [affective] disorder; G89.29 Other chronic pain; J44.9 Chronic obstructive pulmonary disease, unspecified; M47.816 Spondylosis without myelopathy or radiculopathy, lumbar region; M51.36 Other intervertebral disc degeneration, lumbar region; Z95.2 Presence of prosthetic heart valve; Z95.5 Presence of coronary angioplasty implant and graft; I34.2 Nonrheumatic mitral (valve) stenosis; J45.909 Unspecified asthma, uncomplicated
CPT/HCPCS: 36415; 72110; 80048; 82306; 82607; 82746; 82962; 84443; 85025; 92523; 93970; 97110; 97116; 97162; 97166; 97530; 97535; J1650; J1815

== ENCOUNTER 2021-01-28 16:43 | Inpatient (IN) | payer MEDICARE, MEDICAID ==
[~2021-01-28] VITALS: Ht 152.4 cm; Wt 58.1 kg
[~2021-01-28 16:43] MED LIST changes: +INSULIN GLARGINE UD 100 UNITS/ML SYR SUBCUT SCH; +NETA2.5D3 EACHEYE; -NETA2.5D3 OP
[2021-01-28 18:11] LABS: BASOPHILS % 0.5 % (0.0-2.0); EOSINOPHILS % 1.8 % (0.0-5.0); HEMATOCRIT. 32.5 % (36.0-48.0); HEMOGLOBIN. 11.1 g/dL (12.0-16.0); LYMPHOCYTES % 24.3 % (20.0-50.0); MEAN CORPUSCULAR HEMOGLOBIN 30.5 pg (28.0-32.0); NEUTROPHILS % 62.4 % (40.0-76.0); PLATELET 269 x1000/uL (130-400); RED BLOOD CELL COUNT 3.66 mill/uL (4.2-5.4); RED CELL DISTRIBUTION WIDTH 15.1 % (11.6-14.6)
[2021-01-28 18:14] LABS: CHLORIDE 102 mEq/L (98-107)
[2021-01-28 18:19] LABS: ETHANOL BLOOD < 10 mg/dL
[2021-01-28] MEDS ORDERED: FUROSEMIDE 20MG/2ML VIAL IVP SCH (18:30)
[2021-01-28] MEDS ORDERED: ACETAMINOPHEN 325MG TABLET PO SCH (20:00)
[2021-01-28 20:25] LABS: CLARITY URINE CLEAR (CLEAR); COLOR URINE YELLOW (YELLOW); KETONES URINE NEGATIVE (NEGATIVE); LEUKOCYTE ESTERASE URINE NEGATIVE (NEGATIVE); NITRITE URINE NEGATIVE (NEGATIVE); OCCULT BLOOD URINE NEGATIVE (NEGATIVE); PH URINE 7.5 (4.5-8.0); PROTEIN URINE NEGATIVE (NEGATIVE); SPECIFIC GRAVITY URINE 1.006 (1.005-1.030); UROBILINOGEN URINE 0.2 E.U./dL (0.2-1.0)
[2021-01-28 20:34] LABS: PHENCYCLIDINE URINE SCREEN NEGATIVE (NEGATIVE)
[2021-01-28 20:35] LABS: *AMPHETAMINES SCREEN URINE NEGATIVE (NEGATIVE); *BARBITURATES SCREEN URINE NEGATIVE (NEGATIVE); *BENZODIAZEPINES SCREEN URINE NEGATIVE (NEGATIVE); *COCAINE SCREEN URINE NEGATIVE (NEGATIVE); CANNABINOID URINE SCREEN NEGATIVE (NEGATIVE); METHADONE URINE SCREEN NEGATIVE (NEGATIVE); OPIATES URINE SCREEN NEGATIVE (NEGATIVE)
[2021-01-28] MEDS ORDERED: IPRATROPIUM/ALBUTEROL 0.5-3(2.5)MG/3ML NEB NEB PRN (21:00)
[2021-01-28] MEDS ORDERED: GUAIFENESIN 200MG/10ML SUGAR FREE UDC PO PRN (21:00)
[2021-01-28] MEDS: BLOOD SUGAR DIAGNOSTIC STRIP TEST SCH (21:00)
[2021-01-28] MEDS ORDERED: ACETAMINOPHEN 325MG TABLET PO PRN (21:00)
[2021-01-28] MEDS ORDERED: NITROGLYCERIN 0.4MG TABLET SL SL PRN (21:00)
[2021-01-28] MEDS ORDERED: ZOLPIDEM TARTRATE 5MG TABLET PO PRN (21:00)
[2021-01-28] MEDS ORDERED: CLONIDINE 0.1MG TABLET PO PRN (21:00)
[2021-01-28] MEDS ORDERED: ATORVASTATIN CALCIUM 40MG TABLET PO SCH (21:00)
[2021-01-28] MEDS ORDERED: ONDANSETRON HCL 4MG/2ML INJ IV PRN (21:00)
[2021-01-28] MEDS ORDERED: DEXTROSE 50% WATER 50ML SYRINGE IV PRN (21:00)
[2021-01-28] MEDS ORDERED: MAGNESIUM/ALUMINUM HYDROXIDE/SIMETHICONE 30ML UDC PO PRN (21:00)
[2021-01-28 21:38] LABS: T4 FREE 1.23 ng/dL (0.76-1.46)
[2021-01-28 21:53] LABS: FOLIC ACID (FOLATE) SERUM > 20.00 ng/mL (>5.38)
[2021-01-28 21:58] LABS: FERRITIN 83 ng/mL (10-291)
[2021-01-28 22:03] LABS: VITAMIN B12 SERUM 1326 pg/mL (211-911)
[2021-01-28 23:23] LABS: CREATINE KINASE 74 IU/L (26-192)
[2021-01-28 23:24] LABS: CREATINE KINASE MB FRACTION < 1.0 ng/mL (0.5-3.6)
[2021-01-29] VITALS: BP_SYST 113; BP_SYST 120; BP_DIAS 56; BP_DIAS 61
[2021-01-29] MEDS: FUROSEMIDE 20MG TABLET PO SCH ×3 (00:54→20:41)
[2021-01-29] MEDS: FAMOTIDINE 20MG TABLET PO SCH ×3 (00:54→20:41)
[2021-01-29] MEDS: METOPROLOL TARTRATE 25MG TABLET PO SCH ×3 (00:55→20:41)
[2021-01-29] MEDS: AMLODIPINE 10MG TABLET PO SCH ×2 (00:55→09:30)
[2021-01-29] MEDS: ASCORBIC ACID 500 MG TABLET PO SCH ×3 (00:56→20:41)
[2021-01-29] MEDS: INSULIN LISPRO 100 UNITS/ML SUBCUT SCH ×5 (01:18→20:42)
[2021-01-29 04:00] VITALS: BP 95/45
[2021-01-29] MEDS: BLOOD SUGAR DIAGNOSTIC STRIP TEST SCH ×4 (05:53→20:46)
[2021-01-29 08:00] VITALS: BP 115/60
[2021-01-29] MEDS: ENOXAPARIN 40MG/0.4ML SYR SUBCUT SCH (09:29)
[2021-01-29] MEDS: ZINC SULFATE 220 MG ( 50 ) CAPSULE PO SCH (09:29)
[2021-01-29] MEDS: LOSARTAN POTASSIUM 100 MG TABLET PO SCH (09:30)
[2021-01-29] MEDS: CHOLECALCIFEROL (D3) 1000 UNIT TABLET PO SCH (09:31)
[2021-01-29] MEDS: ASPIRIN 81MG EC TABLET PO SCH (09:31)
[2021-01-29] MEDS: INSULIN GLARGINE UD 100 UNITS/ML SYR SUBCUT SCH (09:49)
[2021-01-29 10:41] LABS: BASOPHILS % 0.7 % (0.0-2.0); HEMATOCRIT. 31.1 % (36.0-48.0); LYMPHOCYTES % 30.3 % (20.0-50.0); MEAN CORPUSCULAR HEMOGLOBIN 31.7 pg (28.0-32.0); MEAN CORPUSCULAR VOLUME 90.1 fL (81.0-99.0); MEAN PLATELET VOLUME 8.2 fl (7.4-10.4); MONOCYTES % 11.3 % (2.0-8.0); NEUTROPHILS % 56.7 % (40.0-76.0); PLATELET 267 x1000/uL (130-400); RED BLOOD CELL COUNT 3.46 mill/uL (4.2-5.4); RED CELL DISTRIBUTION WIDTH 15.2 % (11.6-14.6)
[2021-01-29 10:54] LABS: CHLORIDE 99 mEq/L (98-107)
[2021-01-29 11:07] LABS: PHOSPHORUS 3.9 mg/dL (2.5-4.9)
[2021-01-29 11:10] LABS: CREATINE KINASE 68 IU/L (26-192)
[2021-01-29 11:12] LABS: CREATINE KINASE MB FRACTION < 1.0 ng/mL (0.5-3.6)
[2021-01-29 12:00] VITALS: BP 109/70
[2021-01-29 16:00] VITALS: BP 123/71
[2021-01-29 20:00] VITALS: BP 114/62
[2021-01-29] MEDS: ATORVASTATIN CALCIUM 40MG TABLET PO SCH (20:41)
[2021-01-30] VITALS: BP 120/60
[2021-01-30 04:00] VITALS: BP 114/64
[2021-01-30] MEDS: INSULIN LISPRO 100 UNITS/ML SUBCUT SCH ×4 (07:10→21:00)
[2021-01-30] MEDS: BLOOD SUGAR DIAGNOSTIC STRIP TEST SCH ×4 (07:37→21:00)
[2021-01-30 08:00] VITALS: BP 136/68
[2021-01-30] MEDS: ENOXAPARIN 40MG/0.4ML SYR SUBCUT SCH (09:31)
[2021-01-30] MEDS: LOSARTAN POTASSIUM 100 MG TABLET PO SCH (09:32)
[2021-01-30] MEDS: METOPROLOL TARTRATE 25MG TABLET PO SCH ×2 (09:32→21:00)
[2021-01-30] MEDS: ZINC SULFATE 220 MG ( 50 ) CAPSULE PO SCH (09:32)
[2021-01-30] MEDS: FUROSEMIDE 20MG TABLET PO SCH ×2 (09:32→22:49)
[2021-01-30] MEDS: AMLODIPINE 10MG TABLET PO SCH (09:32)
[2021-01-30] MEDS: ASPIRIN 81MG EC TABLET PO SCH (09:32)
[2021-01-30] MEDS: ASCORBIC ACID 500 MG TABLET PO SCH ×2 (09:32→22:49)
[2021-01-30] MEDS: CHOLECALCIFEROL (D3) 1000 UNIT TABLET PO SCH (09:32)
[2021-01-30] MEDS: FAMOTIDINE 20MG TABLET PO SCH ×2 (09:32→22:48)
[2021-01-30] MEDS: INSULIN GLARGINE UD 100 UNITS/ML SYR SUBCUT SCH (10:07)
[2021-01-30 12:00] VITALS: BP 132/71
[2021-01-30] MEDS: ACETAMINOPHEN 325MG TABLET PO PRN (15:53)
[2021-01-30] MEDS: DOCUSATE SODIUM 100MG CAPSULE PO PRN (15:53)
[2021-01-30 16:00] VITALS: BP 110/58
[2021-01-30 20:00] VITALS: BP 102/49
[2021-01-30] MEDS: ATORVASTATIN CALCIUM 40MG TABLET PO SCH (22:48)
[2021-01-31] VITALS: BP 110/41
[2021-01-31 04:00] VITALS: BP 110/62
[2021-01-31] MEDS: BLOOD SUGAR DIAGNOSTIC STRIP TEST SCH ×4 (06:57→20:49)
[2021-01-31] MEDS: INSULIN LISPRO 100 UNITS/ML SUBCUT SCH ×4 (06:57→20:50)
[2021-01-31 08:00] VITALS: BP 108/51
[2021-01-31] MEDS: LOSARTAN POTASSIUM 100 MG TABLET PO SCH (09:00)
[2021-01-31] MEDS: AMLODIPINE 10MG TABLET PO SCH (09:00)
[2021-01-31] MEDS: METOPROLOL TARTRATE 25MG TABLET PO SCH ×2 (09:00→20:48)
[2021-01-31] MEDS: ASPIRIN 81MG EC TABLET PO SCH (11:00)
[2021-01-31] MEDS: ZINC SULFATE 220 MG ( 50 ) CAPSULE PO SCH (11:00)
[2021-01-31] MEDS: DOCUSATE SODIUM 100MG CAPSULE PO PRN ×2 (11:01→18:27)
[2021-01-31] MEDS: FAMOTIDINE 20MG TABLET PO SCH ×2 (11:02→20:48)
[2021-01-31] MEDS: CHOLECALCIFEROL (D3) 1000 UNIT TABLET PO SCH (11:03)
[2021-01-31] MEDS: ENOXAPARIN 40MG/0.4ML SYR SUBCUT SCH (11:03)
[2021-01-31] MEDS: FUROSEMIDE 20MG TABLET PO SCH ×2 (11:03→20:48)
[2021-01-31] MEDS: ASCORBIC ACID 500 MG TABLET PO SCH ×2 (11:04→20:48)
[2021-01-31] MEDS: INSULIN GLARGINE UD 100 UNITS/ML SYR SUBCUT SCH (11:04)
[2021-01-31 12:00] VITALS: BP 132/70
[2021-01-31 16:00] VITALS: BP 131/61
[2021-01-31 20:00] VITALS: BP 143/78
[2021-01-31] MEDS: ATORVASTATIN CALCIUM 40MG TABLET PO SCH (20:48)
[2021-02-01] VITALS: BP 114/67
[2021-02-01 04:00] VITALS: BP 119/76
[2021-02-01] MEDS: BLOOD SUGAR DIAGNOSTIC STRIP TEST SCH ×4 (05:56→20:34)
[2021-02-01] MEDS: INSULIN LISPRO 100 UNITS/ML SUBCUT SCH ×4 (06:37→20:34)
[2021-02-01 08:00] VITALS: BP 120/66
[2021-02-01] MEDS: ZINC SULFATE 220 MG ( 50 ) CAPSULE PO SCH (08:40)
[2021-02-01] MEDS: ASCORBIC ACID 500 MG TABLET PO SCH ×2 (08:40→21:18)
[2021-02-01] MEDS: FUROSEMIDE 20MG TABLET PO SCH ×2 (08:41→21:18)
[2021-02-01] MEDS: CHOLECALCIFEROL (D3) 1000 UNIT TABLET PO SCH (08:41)
[2021-02-01] MEDS: AMLODIPINE 10MG TABLET PO SCH (08:41)
[2021-02-01] MEDS: ASPIRIN 81MG EC TABLET PO SCH (08:41)
[2021-02-01] MEDS: LOSARTAN POTASSIUM 100 MG TABLET PO SCH (08:41)
[2021-02-01] MEDS: FAMOTIDINE 20MG TABLET PO SCH ×2 (08:41→21:18)
[2021-02-01] MEDS: METOPROLOL TARTRATE 25MG TABLET PO SCH ×2 (08:41→21:17)
[2021-02-01] MEDS: ENOXAPARIN 40MG/0.4ML SYR SUBCUT SCH (08:42)
[2021-02-01] MEDS: INSULIN GLARGINE UD 100 UNITS/ML SYR SUBCUT SCH (10:02)
[2021-02-01 12:00] VITALS: BP 101/63
[2021-02-01 16:00] VITALS: BP 118/76
[2021-02-01] MEDS: ACETAMINOPHEN 325MG TABLET PO PRN (19:30)
[2021-02-01 20:00] VITALS: BP 107/56
[2021-02-01] MEDS: ATORVASTATIN CALCIUM 40MG TABLET PO SCH (21:19)
[2021-02-02] VITALS: BP 114/67
[2021-02-02 04:00] VITALS: BP 104/58
[2021-02-02] MEDS: BLOOD SUGAR DIAGNOSTIC STRIP TEST SCH ×3 (05:57→16:42)
[2021-02-02] MEDS: INSULIN LISPRO 100 UNITS/ML SUBCUT SCH ×3 (05:57→16:42)
[2021-02-02 08:00] VITALS: BP 109/65
[2021-02-02] MEDS: LOSARTAN POTASSIUM 100 MG TABLET PO SCH (08:27)
[2021-02-02] MEDS: AMLODIPINE 10MG TABLET PO SCH (08:27)
[2021-02-02] MEDS: METOPROLOL TARTRATE 25MG TABLET PO SCH (08:27)
[2021-02-02] MEDS: FUROSEMIDE 20MG TABLET PO SCH ×2 (08:31→08:37)
[2021-02-02] MEDS: FAMOTIDINE 20MG TABLET PO SCH ×2 (08:31→08:37)
[2021-02-02] MEDS: CHOLECALCIFEROL (D3) 1000 UNIT TABLET PO SCH ×2 (08:31→08:37)
[2021-02-02] MEDS: ENOXAPARIN 40MG/0.4ML SYR SUBCUT SCH ×2 (08:31→08:37)
[2021-02-02] MEDS: ASPIRIN 81MG EC TABLET PO SCH ×2 (08:31→08:37)
[2021-02-02] MEDS: ASCORBIC ACID 500 MG TABLET PO SCH ×2 (08:31→08:37)
[2021-02-02] MEDS: ZINC SULFATE 220 MG ( 50 ) CAPSULE PO SCH ×2 (08:31→08:37)
[2021-02-02] MEDS: INSULIN GLARGINE UD 100 UNITS/ML SYR SUBCUT SCH (10:36)
[2021-02-02 12:00] VITALS: BP 110/74
[2021-02-02 16:00] VITALS: BP 98/60
[2021-02-02 17:20] VITALS: BP 98/60
[2021-02-03] MEDS ORDERED: MULTIVITAMINS,THER W-MINERALS TABLET PO SCH (09:00)
== END 2021-02-02 18:57 | disposition home health service (06) | DRG 291 ==
LOC: ER 16:43 → 7EST 20:32 → ENRESERV 20:41 → SUPCPDRO 20:50
PROVIDERS: ADMIT Internal Medicine; ATTEND Internal Medicine
DX: I11.0 Hypertensive heart disease with heart failure (principal); I50.43 Acute on chronic combined systolic (congestive) and diastolic (congestive) heart failure; G93.41 Metabolic encephalopathy; E44.0 Moderate protein-calorie malnutrition; D63.8 Anemia in other chronic diseases classified elsewhere; E11.9 Type 2 diabetes mellitus without complications; I25.10 Atherosclerotic heart disease of native coronary artery without angina pectoris; J45.909 Unspecified asthma, uncomplicated; I42.9 Cardiomyopathy, unspecified; G89.29 Other chronic pain; R26.9 Unspecified abnormalities of gait and mobility; R53.81 Other malaise; Z82.49 Family history of ischemic heart disease and other diseases of the circulatory system; Z95.2 Presence of prosthetic heart valve; Z95.5 Presence of coronary angioplasty implant and graft; Z79.2 Long term (current) use of antibiotics; Z79.899 Other long term (current) drug therapy; Z68.25 Body mass index [BMI] 25.0-25.9, adult
CPT/HCPCS: 36415; 71045; 80053; 80061; 80305; 80320; 81003; 82140; 82550; 82553; 82607; 82728; 82746; 82962; 83036; 83540; 83550; 83605; 83735; 83880; 84100; 84439; 84443; 84484; 85025; 93005; 93970; 97116; 97162; 97166; 97535; 99285; J1650; J1815; J1940; G0480

== ENCOUNTER 2023-04-29 20:03 | Emergency (ER) | payer MEDICARE, MEDICAID ==
[~2023-04-29] VITALS: Ht 165.1 cm; Wt 82.0 kg
[~2023-04-29 20:03] MED LIST changes: +BENA-8 PO; -BENA20TA10 PO; -GABA-529 PO; -INSULIN GLARGINE UD 100 UNITS/ML SYR SUBCUT SCH; -LOSA100T32 PO; +LOSA100T33 PO
[2023-04-29 20:10] VITALS: O2SAT 100
[2023-04-29] MEDS ORDERED: ONDANSETRON HCL 4MG/2ML INJ IV STA (20:22)
[2023-04-29] MEDS ORDERED: SODIUM CHLORIDE 0.9% 1,000 ML IV ONE (20:30)
[2023-04-29 21:35] LABS: BASOPHILS % 0.6 % (0.0-2.0); EOSINOPHILS % 3.4 % (0.0-5.0); HEMOGLOBIN. 11.5 g/dL (12.0-16.0); LYMPHOCYTES % 28.9 % (20.0-50.0); MEAN CORPUSCULAR HEMOGLOBIN 28.8 pg (28.0-32.0); MEAN CORPUSCULAR HGB CONC 32.8 g/dL (31.0-37.0); MEAN PLATELET VOLUME 8.5 fl (7.4-10.4); MONOCYTES % 9.5 % (2.0-8.0); NEUTROPHILS % 57.6 % (40.0-76.0); PLATELET 184 x1000/uL (130-400); RED BLOOD CELL COUNT 3.98 mill/uL (4.2-5.4); RED CELL DISTRIBUTION WIDTH 15.2 % (11.6-14.6); WHITE BLOOD COUNT 6.7 x1000/uL (4.5-11.0)
[2023-04-29 21:52] LABS: ALANINE AMINOTRANSFERASE 13 IU/L (10-49); ASPARTATE AMINOTRANSFERASE 18 IU/L (<34); BILIRUBIN TOTAL 0.5 mg/dL (0.1-1.0); CALCIUM 9.5 mg/dL (8.7-10.4); CARBON DIOXIDE 27 mEq/L (21-32); CHLORIDE 105 mEq/L (98-107); CREATININE 0.9 mg/dL (0.6-1.0); GLUCOSE 188 mg/dL (70-105); POTASSIUM 4.6 mEq/L (3.5-5.1); SODIUM 138 mEq/L (136-145); TROPONIN I HIGH SENSITIVITY 17 ng/L (3.0-34); UREA NITROGEN BLOOD 17 mg/dL (9-23)
[2023-04-29 23:31] LABS: TROPONIN I HIGH SENSITIVITY 18 ng/L (3.0-34)
[2023-04-30 01:39] VITALS: BP 153/86; PULSE 89; RESP 17; TEMP 98.5
[2023-04-30] MEDS ORDERED: GUAI-450 MT (01:53)
[2023-04-30] MEDS ORDERED: P50 MT (01:53)
== END 2023-04-30 02:14 | disposition home or self-care (01) ==
LOC: ER 20:03
DX: R53.1 Weakness (principal); G93.89 Other specified disorders of brain; J45.909 Unspecified asthma, uncomplicated; E11.9 Type 2 diabetes mellitus without complications; I10 Essential (primary) hypertension; Z79.899 Other long term (current) drug therapy
CPT/HCPCS: 99285; 96374; 70450; 71045; 96361; 80053; 83880; 83690; 85025; 85610; 84484; 36415; J2405; J7030